=== PATIENT | female | born 1935 | race Caucasian/White ===

== ENCOUNTER → 2016-04-25 | Day surgery (SDC) | payer OTHER ==
[~2016-04-25] MED LIST: BONI150T; BUPIVACAINE/EPINEPHRINE 0.25% PF 30 ML VIAL ONE; BUPIVACAINE/EPINEPHRINE 0.5% PF 30 ML VIAL ONE; CALCIUM PLUS D; GINKO BILOBA; GLUCOSAMINE; LACTATED RINGER'S 1000 ML INJ 1,000 ML ONE; PREMARIN; REDPOW2; TAB-TAB; ceFAZolin 2 GM PREMIX 50 ML ONE
== END | disposition home or self-care (01) ==
LOC: ESDC 08:08
PROVIDERS: ATTEND Surgery Trauma Surgery
DX: C43.62 Malignant melanoma of left upper limb, including shoulder (principal); Z01.810 Encounter for preprocedural cardiovascular examination
CPT/HCPCS: 93005; G0463; 99211; J0690; J7120

== ENCOUNTER → 2016-05-09 | Day surgery (SDC) | payer OTHER ==
[~2016-05-09] MED LIST changes: +BUPIVACAINE/EPINEPHRINE 0.25% 50 ML VIAL ONE; -BUPIVACAINE/EPINEPHRINE 0.25% PF 30 ML VIAL ONE; -BUPIVACAINE/EPINEPHRINE 0.5% PF 30 ML VIAL ONE; +PROPOFOL 200 MG/20 ML AMP IV ONE
--- NOTE | 2016-05-09 10:30 | TN ---
cc: JEAN-PIERRE QUINN M.D. Corrected Copy: 05/17/16 DATE OF SURGERY: 05/09/2016 PREOPERATIVE DIAGNOSIS Melanoma in situ, left shoulder. POSTOPERATIVE DIAGNOSIS Melanoma in situ, left shoulder. PROCEDURE PERFORMED Wide local excision of melanoma in situ, left shoulder, 3 x 6 cm. SURGEON Jean-Pierre Quinn APPLICATIONS DEVELOPER ESTRELLITA Quezada ANESTHESIA TIVA with local. COMPLICATIONS None. INDICATION FOR PROCEDURE Ms. Clifford is a pleasant 80-year-old female who had a concerning pigmented lesion on her left shoulder. I performed a punch biopsy in the office and this returned a melanoma in situ. I recommended a wide local excision of the lesion. The lesion was fairly large and I advised her this would need to be done in the operating room. The risks and benefits of the procedure was discussed with her and she was agreeable. DETAILS OF PROCEDURE The patient was identified, brought to the operating room and placed supine on the operating table. She was then turned into the right lateral decubitus position with appropriate padding for hips, knees, shoulders and ankles. The patient was sedated. The left shoulder was then prepped and draped in a standard surgical fashion. 1% lidocaine with epinephrine was injected in the skin and subcutaneous tissue around the lesion. A 3 x 6 cm elliptical incision was then made around the lesion to achieve gross negative margins. The subcutaneous tissue was dissected with sharp dissection. The lesion was excised in toto. A short stitch was placed superior, a long stitch was placed left lateral. The specimen was sent to pathology for analysis. Bleeding points were controlled with electrocautery Bovie. The wound was then closed in two layers using a 3-0 Vicryl for the subcutaneous tissue and a 4-0 Vicryl for the skin. Sterile dressings were applied and the patient was awakened and brought to Recovery in stable condition. The ESTRELLITA first beater was medically necessary due to her specialized surgical skills and knowledge of my surgical technique. MD NAOMI Diaz/SINAI /10:17 AM /10:49 AM
== END | disposition home or self-care (01) ==
LOC: ESDC 08:31
PROVIDERS: ATTEND Surgery Trauma Surgery
DX: C43.62 Malignant melanoma of left upper limb, including shoulder (principal)
CPT/HCPCS: 00400; 11606; 12032; 88305; J0690; J3010; J7120